=== PATIENT | female | born 1960 | race Native Hawaiian/Other Pacific Islander ===

== ENCOUNTER 2017-07-09 17:52 | Emergency (ER) | payer MEDICARE, OTHER ==
[2017-07-09 18:01] VITALS: BP 140/82; PULSE 96; RESP 18; TEMP 102.8; O2SAT 98
--- NOTE | 2017-07-09 18:07 | ED PDOC ---
HPI: General Adult Time Seen by Provider: 07/09/17 18:00 Chief Complaint (Nursing): Cough, Cold, Congestion Chief Complaint (Provider): Cough, Cold, Congestion History Per: Patient History/Exam Limitations: no limitations Current Symptoms Are (Timing): Still Present Additional Complaint(s): 56 year old female presents to the emergency department with a complaint of an on and off cough, fever, congestion, headache, and chills x1 week. Patient decided to visit out facility today because fever was 102.2 today compared to yesterday, 98.6. Reports her fever was almost the same on , 07/07/2017, but resolved spontaneously. Denies taking any medication for the fever, nausea, vomiting, diarrhea, or urinary symptoms. PMD: Dr. Edmar Cosby MD Past Medical History Reviewed: Historical Data, Nursing Documentation, Vital Signs Vital Signs: Last Vital Signs Temp 102.8 F H 07/09/17 18:18 Pulse 96 H 07/09/17 17:59 Resp 18 07/09/17 17:59 BP 140/82 07/09/17 17:59 Pulse Ox 98 07/09/17 18:58 - Medical History PMH: No Chronic Diseases - Surgical History Surgical History: No Surg Hx - Family History Family History: States: Unknown Family Hx - Social History Current smoker - smoking cessation education provided: No Alcohol: None Drugs: Denies - Home Medications Home Medications: Ambulatory Orders Medication Instructions Recorded Acetaminophen [Tylenol] 325 mg PO Q4 PRN #20 tab 07/11/14 Cyclobenzaprine HCl [Flexeril] 10 mg PO Q8 #15 tab 07/11/14 Oseltamivir [Tamiflu] 75 mg PO BID #10 cap 07/09/17 - Allergies Allergies/Adverse Reactions: Allergies Allergy/AdvReac Type Severity Reaction Status Date / Time No Known Allergies Allergy Verified 07/09/17 17:58 Review of Systems ROS Statement: Except As Marked, All Systems Reviewed And Found Negative (As per HPI, otherwise negative) Constitutional: Positive for: Fever, Chills ENT: Positive for: Nose Congestion Gastrointestinal: Negative for: Nausea, Vomiting, Diarrhea Genitourinary Female: Negative for: Dysuria, Frequency, Incontinence, Hematuria Neurological: Positive for: Headache Physical Exam - Reviewed Nursing Documentation Reviewed: Yes Vital Signs Reviewed: Yes - Physical Exam Appears: Positive for: Non-toxic, No Acute Distress Head Exam: Positive for: ATRAUMATIC, NORMAL INSPECTION, NORMOCEPHALIC Skin: Positive for: Normal Color, Warm, Dry ENT: Positive for: Normal ENT Inspection, TM Is/Are (Clear). Negative for: Pharyngeal Erythema Cardiovascular/Chest: Positive for: Regular Rate, Rhythm. Negative for: Murmur Respiratory: Positive for: Normal Breath Sounds. Negative for: Accessory Muscle Use, Respiratory Distress Neurologic/Psych: Positive for: Alert, Oriented (x3) - ECG O2 Sat by Pulse Oximetry: 98 (RA) Pulse Ox Interpretation: Normal Medical Decision Making Medical Decision Making: Time: 1804 Initial impression: Fever and cough Initial plan: --Tylenol 650 mg PO --Motrin 600 mg PO --Chest x-ray --Influenza A B --Reevaluation Time: 1857 --Positive for influenza A Scribe Attestation: Documented by Krystin oGldstein, acting as a scribe for Justine Kumar PA-C Provider Scribe Attestation: All medical record entries made by the Scribe were at my direction and personally dictated by me. I have reviewed the chart and agree that the record accurately reflects my personal performance of the history, physical exam, medical decision making, and the department course for this patient. I have also personally directed, reviewed, and agree with the discharge instructions and disposition. Disposition - Clinical Impression Clinical Impression: Influenza A - Patient ED Disposition Is Patient to be Admitted: No Counseled Patient/Family Regarding: Diagnosis, Need For Followup, Rx Given - Disposition Disposition: Routine/Home Disposition Time: 19:08 Condition: GOOD Prescriptions: Oseltamivir [Tamiflu] 75 mg PO BID #10 cap Instructions: Influenza (ED) Forms: [employer] ([place])
--- NOTE | 2017-07-10 13:34 | RAD ---
HISTORY: cough, fever COMPARISON: 12/16/2014 TECHNIQUE: Chest PA and lateral FINDINGS: LUNGS: No active pulmonary disease. PLEURA: No significant pleural effusion identified. No pneumothorax apparent. CARDIOVASCULAR: Normal. OSSEOUS STRUCTURES: No significant abnormalities. VISUALIZED UPPER ABDOMEN: Normal. OTHER FINDINGS: None. IMPRESSION: No active disease.
== END 2017-07-09 19:30 | disposition home or self-care (01) ==
LOC: H.ER 17:52
DX: J10.1 Influenza due to other identified influenza virus with other respiratory manifestations (principal)

== ENCOUNTER 2017-10-25 21:11 | Emergency (ER) | payer OTHER, MEDICARE ==
[2017-10-25 21:22] VITALS: BP 134/84; PULSE 60; RESP 18; TEMP 97.6; O2SAT 98
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
[2017-10-25] MEDS ORDERED: Naproxen 500 MG TAB PO STA (22:25)
[2017-10-25] MEDS ORDERED: Naproxen 500 MG TAB PO ONE ×2 (22:41)
[2017-10-25] MEDS ORDERED: Povidone Iodine Topical 10% Sol ONE (22:42)
--- NOTE | 2017-10-26 08:16 | CARD ---
APPROVED REPORT EKG Measurement Heart [id number] <Conclusion> Sinus bradycardia Otherwise normal ECG
--- NOTE | 2017-10-31 15:26 | RAD ---
HISTORY: chest pain COMPARISON: 07/09/2017 TECHNIQUE: Chest PA and lateral FINDINGS: LUNGS: No active pulmonary disease. PLEURA: No significant pleural effusion identified. No pneumothorax apparent. CARDIOVASCULAR: No radiographic findings to suggest acute or significant cardiovascular disease. OSSEOUS STRUCTURES: No significant abnormalities. VISUALIZED UPPER ABDOMEN: Normal. OTHER FINDINGS: None. IMPRESSION: No active disease. No significant interval change compared to the prior examination(s).
== END 2017-10-25 23:38 | disposition home or self-care (01) ==
LOC: H.ER 21:11
DX: M54.5 Low back pain (principal); V49.9XXA Car occupant (driver) (passenger) injured in unspecified traffic accident, initial encounter